=== PATIENT | male | born 1975 | race Two or more races ===

== ENCOUNTER 2021-01-04 12:39 | Emergency (ER) | payer OTHER ==
[~2021-01-04] VITALS: Ht 172.7 cm; Wt 100.0 kg
[~2021-01-04 12:39] MED LIST: ASPI-886 PO; ATOR40TA59 PO; CLOP75TA PO; ISOS30TA68 PO; LOVA20TA2 PO; PRAS10TA9 PO; SIMV40TA PO
[2021-01-04] MEDS: KETOROLAC 60 MG/2 ML VIAL. IM ONE (13:30)
[2021-01-04] MEDS: diazePAM 5 MG TABLET PO ONE (13:30)
[2021-01-04] MEDS ORDERED: KETO10TA PO (14:16)
[2021-01-04] MEDS ORDERED: METH-561 PO (14:16)
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
[2021-01-04 14:40] VITALS: BP 138/68
== END 2021-01-04 14:40 | disposition home or self-care (01) ==
LOC: ER 12:39
DX: S13.4XXA Sprain of ligaments of cervical spine, initial encounter (principal); S09.8XXA Other specified injuries of head, initial encounter; R42 Dizziness and giddiness; E78.00 Pure hypercholesterolemia, unspecified; I10 Essential (primary) hypertension; I25.2 Old myocardial infarction; Z87.891 Personal history of nicotine dependence; Z98.890 Other specified postprocedural states; V49.9XXA Car occupant (driver) (passenger) injured in unspecified traffic accident, initial encounter; Y93.89 Activity, other specified; Y92.413 State road as the place of occurrence of the external cause; Y99.8 Other external cause status
CPT/HCPCS: 96372; 99283; J1885